=== PATIENT | female | born 1990 | race Caucasian/White ===

== ENCOUNTER 2017-08-02 08:42 | Emergency (ER) | payer OTHER ==
[~2017-08-02] VITALS: Ht 157.5 cm; Wt 59.5 kg
[~2017-08-02 08:42] MED LIST: CIPRO500 MG PO; KLONOPIN0.5 M1 PO; Motrin PO; NO HOME MEDS; NOHOMEMEDS; PEN-VEE K,VEET500 MG PO; Percocet 5/325,Endoc PO; TRAZODONE HCL50 MG PO; ULTRAM50 MG PO; ZOFRAN4 MG PO
[2017-08-02 09:26] LABS: BASOPHIL (%) 0.1 % (0-1); EOSINOPHIL (%) 0.3 % (0-5); HEMATOCRIT 39.8 % (36.0-46.0); HEMOGLOBIN 13.4 G/DL (11.9-15.5); IMMATURE GRANULOCYTE (%) 0.7 % (0.0-0.7); LYMPHOCYTE (%) 3.7 % (15-42); LYMPHOCYTE COUNT 0.6 K/uL (1.0-2.8); MCH 30.7 PG (29.0-34.0); MCHC 33.7 G/DL (30.0-36.0); MCV 91.3 FL (83-99); MONOCYTE (%) 4.1 % (3-12); MONOCYTE COUNT 0.6 K/uL (0-0.8); NEUTROPHIL (%) 91.1 % (45-76); NEUTROPHIL COUNT 13.7 K/uL (1.8-6.4); RBC DIS.WIDTH-SD 47.3 % (39-53); RED BLOOD COUNT 4.36 M/uL (3.80-5.20)
[2017-08-02 09:59] LABS: CHLORIDE 105 mEq/L (99-109); POTASSIUM 5.7 mEq/L (3.7-5.4); SODIUM 140 mEq/L (136-147)
[2017-08-02 10:00] LABS: GLUCOSE 93 mg/dL (70-99)
[2017-08-02 10:04] LABS: CREATININE 1.5 mg/dL (0.6-1.3); GFR ESTIMATE (CALCULATED) 45 mL/min/; SERUM ETHYL ALCOHOL < 10 mg/dL
[2017-08-02 10:05] LABS: UREA NITROGEN (BUN) 20 mg/dL (9-23)
[2017-08-02 10:13] LABS: ABS NEUTROPHIL COUNT 13.8; BAND NEUTROPHILS 0.9 % (0-8.0); EOSINOPHIL ABS CT 0; LYMPHOCYTES 5.2 % (15.0-45.0); MONOCYTES 2.6 % (0-9.0); PLAT.SUFFICIENCY ADEQUATE; PLATELET COUNT 243 K/uL (156-360); QUANTITATIVE HCG < 4.0 MIU/ML; SEG.NEUTROPHILS 91.3 % (46.0-76.0)
[2017-08-02 10:57] LABS: APPEARANCE CLOUDY ((CLEAR)); BILIRUBIN NEGATIVE; BLOOD NEGATIVE; COLOR AMBER ((YELLOW)); GLUCOSE (STRIP) NEGATIVE; KETONES NEGATIVE; LEUKOCYTES MODERATE; NITRITE NEGATIVE; PROTEIN (STRIP) 30
[2017-08-02 11:11] LABS: COCAINE PRESUMPTIVE POSITIVE (150 ng/mL); METHAMPHETAMINE NEGATIVE (500 ng/mL); OPIATES (MORPHINE) PRESUMPTIVE POSITIVE (100 ng/mL); PHENCYCLIDINE PRESUMPTIVE POSITIVE (25 ng/mL); THC CANNABINOIDS PRESUMPTIVE POSITIVE (50 ng/mL)
[2017-08-02 11:12] LABS: AMPHETAMINE NEGATIVE (500 ng/mL); BARBITURATES NEGATIVE (200 ng/mL); BENZODIAZEPINES NEGATIVE (150 ng/mL); BUPRENORPHINE NEGATIVE (10 ng/mL); METHADONE NEGATIVE (200 ng/mL); OXYCODONE PRESUMPTIVE POSITIVE (100 ng/mL); PROPOXYPHENE NEGATIVE (300 ng/mL); TRICYCLIC ANTIDEPRESSANTS NEGATIVE (300 ng/mL)
[2017-08-02 11:15] LABS: BACTERIA 2+ /HPF; EPITHELIAL CELLS 1+ /HPF; MUCUS 2+ /LPF; RED BLOOD CELLS 0-5 /HPF (0-5); WHITE BLOOD CELLS 20-30 /HPF (0-5)
[2017-08-02 12:57] LABS: CHLORIDE 106 mEq/L (99-109); POTASSIUM 4.8 mEq/L (3.7-5.4); SODIUM 135 mEq/L (136-147)
[2017-08-02 12:58] LABS: GLUCOSE 88 mg/dL (70-99)
[2017-08-02 13:02] LABS: CREATININE 1.1 mg/dL (0.6-1.3); GFR ESTIMATE (CALCULATED) > 59 mL/min/
[2017-08-02 13:03] LABS: UREA NITROGEN (BUN) 22 mg/dL (9-23)
[2017-08-02 14:16] VITALS: BP 93/56
== END 2017-08-02 14:16 | disposition home or self-care (01) ==
LOC: EME → EDBD 08:42 → EME 08:42
PROVIDERS: Emergency Medicine
DX: T40.1X1A Poisoning by heroin, accidental (unintentional), initial encounter (principal); F19.10 Other psychoactive substance abuse, uncomplicated; F17.200 Nicotine dependence, unspecified, uncomplicated
CPT/HCPCS: 80048; 80048 91; 81003; 84702; 84999; 85025; 99281; 99284; G0480; J2310